=== PATIENT | male | born 1950 ===

== ENCOUNTER 2018-08-05 07:27 | Day surgery (SDC) | payer MEDICARE ==
[2018-08-04 13:58] VITALS: BMI 23.1
[2018-08-05 07:50] VITALS: O2SAT 100
[2018-08-05] MEDS ORDERED: Pantoprazole 40 mg EC Tab PO STA (08:13)
--- NOTE | 2018-08-05 08:13 | CP.SDSHP ---
Same Day Surgery H & P - History Proposed Procedure: egd. colonoscopy Pre-Op Diagnosis: iron deficiency anemia. heartburn - Previous Medical/Surgical History Cardiac: Other (hyperlipidemia, ) Endocrine/Metabolic: Thyroid Disease, Diabetes Misc: Anemia Previous Surgical History: RIH repair. Pilonidal cystectomy - Allergies Allergies: Allergies No Known Allergies Allergy (Verified 08/04/18 13:57) - Physical Exam Vital Signs: Vital Signs 08/05/18 07:43 Temperature 97.6 F Pulse Rate 54 L Respiratory 19 Rate Blood Pressure 154/77 H O2 Sat by Pulse 100 Oximetry Mental Status: Alert & Oriented x3 Neuro: WNL Heart: WNL Lungs: WNL GI: WNL - Impression Impression: iron deficiency anemia. heartburn Pt. Evaluated Today:Candidate for Anesthesia & Procedure: Yes - Date & Time Date: 08/05/18 Time: 08:13 Short Stay Discharge - Short Stay Discharge Admitting Diagnosis/Reason for Visit: HEARTBURN / ANEMIA / ERUCTATION Disposition: HOME/ ROUTINE
[2018-08-05] MEDS ORDERED: Propofol 10 mg/ml Inj (20 ML) ONE (08:16)
[2018-08-05 09:40] VITALS: TEMP 96.8
[2018-08-05 10:02] VITALS: BP 146/62; PULSE 54; RESP 18
== END 2018-08-05 09:41 | disposition home or self-care (01) ==
LOC: C.ENDO 07:27
PROVIDERS: ATTEND Internal Medicine Gastroenterology
DX: D50.9 Iron deficiency anemia, unspecified (principal); R12 Heartburn; R14.2 Eructation; K64.1 Second degree hemorrhoids; K21.0 Gastro-esophageal reflux disease with esophagitis; K29.70 Gastritis, unspecified, without bleeding; E11.9 Type 2 diabetes mellitus without complications; E78.49 Other hyperlipidemia
CPT/HCPCS: 43239; 45378; 82948; 88305; 88312; 88342; J2001; J2704